=== PATIENT | female | born 1940 | race Caucasian/White ===

== ENCOUNTER 2016-11-07 14:07 | Emergency (ER) | payer OTHER, MEDICAID ==
[~2016-11-07] VITALS: Ht 152.4 cm; Wt 66.0 kg
[~2016-11-07 14:07] MED LIST: CALC500T12 PO; CHOL2000 PO; FERR325C PO; FURO40TA4 PO; NIFE30TA60 PO; OMEP20CA9 PO; PRAV10TA24 PO
[2016-11-07 14:10] VITALS: Ht 152.4 cm; Wt 66.0 kg
[2016-11-07] MEDS ORDERED: SODIUM CHLORIDE 0.9% 1L BAG IV* STA (14:48)
[2016-11-07 15:29] LABS: BASOPHILS % 0.2 % (0.0-2.0); EOSINOPHILS % 0.4 % (0.0-7.0); HEMATOCRIT 25.2 % (37.0-47.0); HEMOGLOBIN 8.6 g/dl (12.0-16.0); LYMPHOCYTES # 1.6 10^3/ul (0.8-2.9); MEAN CORPUSCULAR HEMOGLOBIN 33.2 pg (29.0-33.0); MEAN CORPUSCULAR HGB CONC 34.1 g/dl (32.0-37.0); MEAN CORPUSCULAR VOLUME 97.3 fl (82.0-101.0); MEAN PLATELET VOLUME 9.9 fl (7.4-10.4); MONOCYTES % 9.2 % (0.0-11.0); NEUTROPHIL # 8.2 10^3/ul (1.6-7.5); NEUTROPHILS % 74.7 % (39.0-77.0); PLATELET COUNT 183 10^3/UL (140-415); RED BLOOD COUNT 2.59 10^6/ul (4.20-5.40); RED CELL DISTRIBUTION WIDTH 12.5 % (11.5-14.5); WHITE BLOOD COUNT 10.9 10^3/ul (4.8-10.8)
[2016-11-07 15:37] LABS: ADD UMIC YES; UR ASCORBIC ACID 40 mg/dL (NEGATIVE); UR BILIRUBIN (Dip) NEGATIVE (NEGATIVE); UR BLOOD (Dip) NEGATIVE (NEGATIVE); UR CLARITY CLOUDY (CLEAR); UR COLOR YELLOW (YELLOW); UR GLUCOSE (Dip) NEGATIVE (NEGATIVE); UR KETONES (Dip) NEGATIVE (NEGATIVE); UR LEUKOCYTE ESTERASE (Dip) 2+ Leu/ul (NEGATIVE); UR NITRITE (Dip) NEGATIVE (NEGATIVE); UR RBC 5 /HPF (0-5); UR SPECIFIC GRAVITY (Dip) 1.012 (1.003-1.030); UR SQUAMOUS EPITHELIAL CELL FEW /HPF (FEW); UR TOTAL PROTEIN (Dip) NEGATIVE (NEGATIVE); UR UROBILINOGEN (Dip) NEGATIVE (NEGATIVE)
[2016-11-07 15:47] LABS: INR 1.01; PROTIME 13.3 Sec (12.2-14.2)
[2016-11-07 15:48] LABS: PARTIAL THROMBOPLASTIN TIME 35.6 Sec (25.0-35.0)
[2016-11-07 15:49] LABS: ALBUMIN/GLOBULIN RATIO 1.08; BILIRUBIN,INDIRECT 0.6 mg/dl (0-1.1); BILIRUBIN,TOTAL 0.6 mg/dl (0.2-1.3); CALCIUM 8.9 mg/dl (8.4-10.2); CREATININE 2.66 mg/dl (0.44-1.00); POTASSIUM 3.9 mmol/L (3.5-5.1); TOTAL PROTEIN 7.7 g/dl (6.1-8.1)
--- NOTE | 2016-11-07 16:00 | RADRPT ---
PROCEDURE: XR Chest. CLINICAL INDICATION: Sepsis. TECHNIQUE: Single frontal view. COMPARISON: 03/08/2015. FINDINGS: There are low lung volumes. The lungs are otherwise clear. The heart is mildly enlarged. There is calcification in the aorta consistent with atherosclerosis. There is no pleural effusion. There is no pneumothorax. IMPRESSION: 1. Low lung volumes. 2. Mild cardiomegaly. 3. Atherosclerosis. RPTAT: QQ .Young Camacho MD, MD Date Time Electronically viewed and signed by .Young Camacho MD, MD on 11/07/2016 16:00 .R/
[2016-11-07 16:01] LABS: TROPONIN-I 0.012 ng/ml (0.00-0.12)
[2016-11-07] MEDS ORDERED: CEFTRIAXONE 1 GM/50 ML (PMX) 50 ML IVPB ONE (16:30)
[2016-11-07] MEDS ORDERED: CIPR500T4 PO (17:07)
--- NOTE | 2016-11-07 17:07 | ERA ---
ER Documentation Chief Complaint Date/Time DATE: 11/07/16 TIME: 17:04 Chief Complaint Pt with fever, cough X 3 weeks and diarrhea X 3 days. HPI This is a 76-year-old female who presents to the emergency room for evaluation of generalized weakness, diarrhea for 3 days and a cough for the past week. She states that today she felt chills and thinks that she had a fever. She came to the emergency room for evaluation. She denies any abdominal pain, nausea or vomiting associated with this. ROS All systems reviewed and are negative except as per history of present illness. Medications Home Meds Reported Medications Furosemide* (Furosemide*) 40 Mg Tablet, 40 MG PO BID, TAB 03/02/15 Calcium Carbonate* (Oysco-500*) 1 Tab Tablet, 1 TAB PO BID, TAB 05/15/14 Ferrous Sulfate (Iron) 325 Mg Capsr, 325 MG PO BID 05/15/14 Cholecalciferol* (Vitamin D3*) 2,000 Unit Cap, 2000 UNIT PO DAILY, CAP 04/09/14 Nifedipine* (Nifedipine ER*) 30 Mg Tablet.sa, 30 MG PO DAILY, TAB.SA 03/20/14 Omeprazole* (Prilosec*) 20 Mg Capsule.dr, 20 MG PO DAILY, CAP 02/12/14 Pravastatin Sodium* (Pravachol*) 10 Mg Tablet, 10 MG PO HS, TAB 02/12/14 Allergies Allergies: Coded Allergies: Penicillins (Verified Allergy, Unknown, 03/11/15) PMhx/Soc History of Surgery: Yes Anesthesia Reaction: No Hx Neurological Disorder: No Hx Respiratory Disorders: No Hx Cardiac Disorders: Yes (HTN) Hx Psychiatric Problems: No Hx Miscellaneous Medical Probl: Yes (ckd,anemia) Hx Alcohol Use: No Hx Substance Use: No Hx Tobacco Use: No Smoking Status: Never smoker Physical Exam Vitals Vital Signs Date Time Temp Pulse Resp B/P Pulse Ox O2 Delivery O2 Flow Rate FiO2 11/07/16 15:20 70 18 125/47 97 Room Air 11/07/16 14:10 100.3 79 18 117/57 95 Physical Exam INITIAL VITAL SIGNS: Reviewed by me GENERAL: The patient is well developed and appropriate for usual state of health in no apparent distress HEENT: Dry mucous membranes, pupils equal, round, and reactive to light. EOMI. There is no scleral icterus. NECK: C-spine is soft and supple, there is no meningismus. There is no cervical lymphadenopathy. LUNGS: Clear to auscultation bilaterally. There are no rales, wheezes or rhonchi. HEART: Regular rate and rhythm, no murmurs, clicks, rubs or gallops. ABDOMEN: Slight suprapubic tenderness to palpation, otherwise soft, non-tender, non-distended. There are bowel sounds in all four quadrants. No rebound or guarding. EXTREMITIES: There is no peripheral cyanosis or edema. No focal swelling or erythema. NEUROLOGICAL: The patient moves all four extremities with 5/5 strength. Cranial nerves II - XII are intact. Normal gait. Alert and oriented SKIN: There is no apparent rash or petechiae. HEME/LYMPHATIC: There is no evidence of excessive bruising or lymphedema. PSYCHIATRIC: The patient does not appear anxious or depressed. Result Diagram: 11/07/16 1315 11/07/16 1315 Results 24 hrs Laboratory Tests Test 11/07/16 13:15 11/07/16 15:12 11/07/16 16:35 White Blood Count 10.910^3/ul Red Blood Count 2.5910^6/ul Hemoglobin 8.6g/dl Hematocrit 25.2% Mean Corpuscular Volume 97.3fl Mean Corpuscular Hemoglobin 33.2pg Mean Corpuscular Hemoglobin Concent 34.1g/dl Red Cell Distribution Width 12.5% Platelet Count 13870^3/UL Mean Platelet Volume 9.9fl Neutrophils % 74.7% Lymphocytes % 15.0% Monocytes % 9.2% Eosinophils % 0.4% Basophils % 0.2% Nucleated Red Blood Cells % 0.0/100WBC Neutrophils # 8.210^3/ul Lymphocytes # 1.610^3/ul Monocytes # 1.010^3/ul Eosinophils # 0.010^3/ul Basophils # 0.010^3/ul Nucleated Red Blood Cells # 0.010^3/ul Prothrombin Time 13.3Sec Prothrombin Time Ratio 1.0 INR International Normalized Ratio 1.01 Activated Partial Thromboplast Time 35.6Sec Sodium Level 133mmol/L Potassium Level 3.9mmol/L Chloride Level 100mmol/L Carbon Dioxide Level 24mmol/L Anion Gap 13 Blood Urea Nitrogen 59mg/dl Creatinine 2.66mg/dl Glucose Level 141mg/dl Lactic Acid Level 1.7mmol/L 0.9mmol/L Calcium Level 8.9mg/dl Total Bilirubin 0.6mg/dl Direct Bilirubin 0.00mg/dl Indirect Bilirubin 0.6mg/dl Aspartate Amino Transf (AST/SGOT) 23IU/L Alanine Aminotransferase (ALT/SGPT) 31IU/L Alkaline Phosphatase 143IU/L Troponin I 0.012ng/ml Total Protein 7.7g/dl Albumin 4.0g/dl Globulin 3.70g/dl Albumin/Globulin Ratio 1.08 Urine Color YELLOW Urine Clarity CLOUDY Urine pH 5.0 Urine Specific [place] 1.012 Urine Ketones NEGATIVEmg/dL Urine Nitrite NEGATIVEmg/dL Urine Bilirubin NEGATIVEmg/dL Urine Urobilinogen NEGATIVEmg/dL Urine Leukocyte Esterase 2+Joce/ul Urine Microscopic RBC 5/HPF Urine Microscopic WBC 3/HPF Urine Squamous Epithelial Cells FEW/HPF Urine Hemoglobin NEGATIVEmg/dL Urine Glucose NEGATIVEmg/dL Urine Total Protein NEGATIVEmg/dl Current Medications Medications (Trade) Dose Ordered Sig/Breanna Route PRN Reason Start Time Stop Time Status Last Admin Dose Admin Sodium Chloride 2000 ml 2,000 ml BOLUS OVER 2 HOURS STAT IV* 11/07/16 14:48 11/07/16 14:50 DC 11/07/16 15:39 Ceftriaxone Sodium (Rocephin) 50 ml @ 100 mls/hr ONCE ONCE IVPB 11/07/16 16:30 11/07/16 16:59 DC 11/07/16 16:11 Procedures/MDM EKG: Rate/Rhythm: [Normal Sinus Rhythm] QRS, ST, T-waves: [No changes consistent w/ acute ischemia] Impression: [No evidence of ischemia or arrhythmia] Chest X-ray 1V Interpreted by me: Soft Tissue: No acute abnormalities Bones: No acute abnormalities Mediastinum/Cardiac Silhouette/Lungs: [No acute abnormalities] This 76-year-old female presents to the ER for evaluation of generalized weakness and low-grade fever with diarrhea. This patient had a low-grade fever on her vital signs at triage. She did have mild suprapubic tenderness to palpation. A septic workup was started on this patient which does reveal a urinary tract infection. She has no leukocytosis, her mean arterial pressures greater than 65. She was given 2 L of fluid and 1 g Rocephin after blood and urine cultures were obtained. When I reevaluated her she said she was feeling much better. Her EKG is nonischemic and chest x-ray is clear. This patient will be discharged home with a prescription for ciprofloxacin for acute cystitis at this time. I advised her and her they can return to the emergency room at any point for reevaluation if they were to have any concerns or questions at home. Both verbalized understanding and are okay with the plan of care Departure Diagnosis: Primary Impression: Acute cystitis Additional Impressions: Renal insufficiency Normocytic anemia Condition: Stable HANY HUMPHREYS DO Nov 07, 2016 17:07
[2016-11-07 17:26] VITALS: BP 125/53; PULSE 73; RESP 18
== END 2016-11-07 17:34 | disposition home or self-care (01) ==
LOC: E/R 14:07
DX: N30.00 Acute cystitis without hematuria (principal); R40.2252 Coma scale, best verbal response, oriented, at arrival to emergency department; D64.9 Anemia, unspecified; I12.9 Hypertensive chronic kidney disease with stage 1 through stage 4 chronic kidney disease, or unspecified chronic kidney disease; N18.9 Chronic kidney disease, unspecified; R40.2142 Coma scale, eyes open, spontaneous, at arrival to emergency department; R40.2362 Coma scale, best motor response, obeys commands, at arrival to emergency department
CPT/HCPCS: 36415; 71010; 80053; 81001; 83605; 84484; 85025; 85610; 85730; 87040; 87086; 93005; 96374; 99285; J0696; J7030

== ENCOUNTER 2017-01-15 22:51 | Emergency (ER) | payer OTHER, MEDICAID ==
[~2017-01-15] VITALS: Ht 157.5 cm; Wt 65.2 kg
[~2017-01-15 22:51] MED LIST changes: +CIPR500T4 PO
[2017-01-15 22:55] VITALS: Ht 157.5 cm; Wt 65.2 kg
[2017-01-16 00:34] LABS: URINE BLOOD (Dip) POC 1+ (NEGATIVE)
[2017-01-16] MEDS ORDERED: CEPHALEXIN 500 MG CAP PO ONE (01:30)
[2017-01-16] MEDS ORDERED: PHEN-537 PO (02:22)
[2017-01-16] MEDS ORDERED: CEPH-443 PO (02:22)
[2017-01-16 02:55] VITALS: BP 150/73; PULSE 69; RESP 20; TEMP 97.7
[2017-01-16 03:08] LABS: UR BACTERIA FEW /HPF (NONE SEEN); UR RBC 1 /HPF (0-5)
[2017-01-16 04:02] LABS: ADD UMIC YES; UR CLARITY CLEAR (CLEAR); UR COLOR YELLOW (YELLOW)
[2017-01-16 04:03] LABS: UR BILIRUBIN (Dip) NEGATIVE (NEGATIVE); UR BLOOD (Dip) TRACE mg/dL (NEGATIVE); UR GLUCOSE (Dip) NEGATIVE (NEGATIVE); UR KETONES (Dip) NEGATIVE (NEGATIVE); UR PH (Dip) 5.5 (5.0-9.0); UR SPECIFIC GRAVITY (Dip) <= 1.005 (1.003-1.030); UR TOTAL PROTEIN (Dip) TRACE mg/dl (NEGATIVE)
[2017-01-16 04:04] LABS: UR LEUKOCYTE ESTERASE (Dip) 3+ Leu/ul (NEGATIVE); UR NITRITE (Dip) POSITIVE (NEGATIVE); UR UROBILINOGEN (Dip) 0.2 E.U./dL mg/dL (NEGATIVE); URINE RBCS 0-2 /HPF (0)
--- NOTE | 2017-01-17 05:20 | ERD ---
ER Documentation Chief Complaint Chief Complaint painful urination x 2 days HPI This is a 76-year-old female presenting to the emergency department for dysuria , frequent and urgent urination 2 days. Patient states she is having burning with urination. No pelvic or abdominal pain. No gross hematuria. No vaginal bleeding. No excessive vaginal discharge. No fevers or chills. No flank pain. No vomiting or diarrhea. No rash or lesions to genital area. ROS All systems reviewed and are negative except as per history of present illness. Medications Home Meds Active Scripts Phenazopyridine Hcl* (Pyridium*) 100 Mg Tab, 100 MG PO TID for 2 Days, TAB Prov:MARIA ESTHER BRANTLEY NP 01/16/17 Cephalexin* (Keflex*) 500 Mg Capsule, 500 MG PO BID for 7 Days, CAP Prov:MARIA ESTHER BRANTLEY NP 01/16/17 Ciprofloxacin Hcl* (Ciprofloxacin Hcl*) 500 Mg Tablet, 500 MG PO BID for 7 Days , TAB Prov:HANY HUMPHREYS DO 11/07/16 Reported Medications Furosemide* (Furosemide*) 40 Mg Tablet, 40 MG PO BID, TAB 03/02/15 Calcium Carbonate* (Oysco-500*) 1 Tab Tablet, 1 TAB PO BID, TAB 05/15/14 Ferrous Sulfate (Iron) 325 Mg Capsr, 325 MG PO BID 05/15/14 Cholecalciferol* (Vitamin D3*) 2,000 Unit Cap, 2000 UNIT PO DAILY, CAP 04/09/14 Nifedipine* (Nifedipine ER*) 30 Mg Tablet.sa, 30 MG PO DAILY, TAB.SA 03/20/14 Omeprazole* (Prilosec*) 20 Mg Capsule.dr, 20 MG PO DAILY, CAP 02/12/14 Pravastatin Sodium* (Pravachol*) 10 Mg Tablet, 10 MG PO HS, TAB 02/12/14 Allergies Allergies: Coded Allergies: Penicillins (Verified Allergy, Unknown, 03/11/15) PMhx/Soc History of Surgery: Yes Anesthesia Reaction: No Hx Neurological Disorder: No Hx Respiratory Disorders: No Hx Cardiac Disorders: Yes (HTN) Hx Psychiatric Problems: No Hx Miscellaneous Medical Probl: Yes (ckd,anemia) Hx Alcohol Use: No Hx Substance Use: No Hx Tobacco Use: No Smoking Status: Never smoker Physical Exam Vitals Vital Signs Date Time Temp Pulse Resp B/P Pulse Ox O2 Delivery O2 Flow Rate FiO2 01/16/17 02:55 97.7 69 20 150/73 01/15/17 22:55 97.8 72 20 169/75 100 Physical Exam Const: No acute distress, alert Head: Atraumatic Eyes: Normal Conjunctiva ENT: Normal External Ears, Nose and Mouth. Neck: Full range of motion..~ No meningismus. Resp: Clear to auscultation bilaterally. No wheezing, rhonchi or crackles. No stridor or labored breathing. Cardio: Regular rate and rhythm, no murmurs Abd: Soft, non tender, non distended. Normal bowel sounds. No pelvic tenderness. Skin: No petechiae or rashes Back: No midline or flank tenderness. No CVA tenderness. Ext: No cyanosis, or edema Neur: Awake and alert Psych: Normal Mood and Affect Results 24 hrs Laboratory Tests Test 01/16/17 00:25 01/16/17 00:34 Urine Color YELLOW Urine Clarity CLEAR Urine pH 5.5 Urine Specific [place] <= 1.005 Urine Ketones NEGATIVEmg/dL Urine Nitrite POSITIVEmg/dL Urine Bilirubin NEGATIVEmg/dL Urine Urobilinogen 0.2 E.U./dLmg/dL Urine Leukocyte Esterase 3+Joce/ul Urine Microscopic RBC 1/HPF Urine Microscopic WBC > 182/HPF Urine Bacteria FEW/HPF Urine Hemoglobin TRACEmg/dL Urine Glucose NEGATIVEmg/dL Urine Total Protein TRACEmg/dl Bedside Urine pH (LAB) 5.5 Bedside Urine Protein (LAB) 1+ Bedside Urine Glucose (UA) Negative Bedside Urine Ketones (LAB) Negative Bedside Urine Blood 1+ Bedside Urine Nitrite (LAB) Positive Bedside Urine Leukocyte Esterase (L 3+ Current Medications Medications (Trade) Dose Ordered Sig/Breanna Route PRN Reason Start Time Stop Time Status Last Admin Dose Admin Cephalexin (Keflex) 500 mg ONCE ONCE PO 01/16/17 01:30 01/16/17 01:31 DC 01/16/17 01:20 Procedures/MDM MDM: This is a 76-year-old female presenting to the emergency department for dysuria, frequent and urgent urination 2 days. Patient is afebrile upon arrival to ED. Patient's blood pressure is 169/75 upon arrival. Upon recheck, patient's blood pressure has improved. Patient is non-tachycardic. No abdominal pain or vomiting. Patient denies any gross hematuria. No vaginal bleeding or vaginal discharge. UA shows 3+ leukocyte esterase, >182 WBC and positive nitrate. Differential diagnosis includes but not limited to Urinary tract infection, vaginitis, candidiasis, urethritis, pelvic inflammatory disease, nephrolithiasis , painful bladder syndrome, gonorrhea, chlamydia, herpes simplex virus, genital warts or trichomoniasis. Low suspicion for pyelonephritis due to patient being afebrile without chills. No flank pain, no CVA tenderness. Patient denies nausea or vomiting. Patient is appropriate for outpatient management and will be given prescription for Keflex and Pyridium. Instructed patient to increase fluid intake and rest as needed. Instructed patient to follow-up with primary care provider in the next 2-3 days for reassessment. Return to ED for any high fever, chest pain, difficulty breathing, shortness breath, wheezing, vomiting, diarrhea, abdominal pain or any new or worsening symptoms. Patient verbalizes understanding. All questions answered at discharge. Bulgarian translation used during this encounter. Disclaimer: Inadvertent spelling and grammatical errors are likely due to EHR/ dictation software use and do not reflect on the overall quality of patient care. Also, please note that the electronic time recorded on this note does not necessarily reflect the actual time of the patient encounter. Departure Diagnosis: Primary Impression: UTI (urinary tract infection) Condition: Stable Patient Instructions: Understanding Urinary Tract Infections (UTIs) Referrals: AYO HERBERT MD (PCP) TEACHER HEARING IMPAIRED [place] [id number] [phone] OFFICE FAX AMEE FIERRO [address] [place], [place] [phone] [address] KAMINSKI HENDRIX [address] [place], [place] [phone] MARILUZ GONZALEZ [address] [facility], [address] [address] [address] [address] [place], [place] [phone] [facility] [address] [place] [phone] [facility] [id number] - TRESA ROBERT [address], [facility] [address] [address] KEARNEY, DANY [address] [facility]. [address], [facility] [address] [address] ROSADO, FARID [address] [place], [place] [phone] [facility] () Usted se ge hecho un examen mdico de control que le indica que no est en leann condicin que requiera tratamiento urgente en el Departamento de Emergencia. Un estudio ms profundo y el tratamiento de hernandez condicin pueden esperar sin ningn riesgo hasta que usted sea atendida/o en el consultorio de hernandez mdico o leann cl flaquita. Es responsabilidad suya arreglar leann vineet para el seguimiento del jovi. MANEJO DE CONDICIONES NO URGENTES EN EL FUTURO 1) Si usted tiene un mdico de atencin primaria: Usted debera llamar a hernandez mdico de atencin primaria antes de venir al departamento de emergencia. Despus de las horas de consultorio, hernandez doctor o hernandez asociado/a est disponible por telfono. El mdico o enfermero de ran en el servicio telefnico puede asesorarle por marianela medio para atender el problema, o jovi contrario se puede programar leann vineet. 2) Si usted no tiene un mdico de atencin primaria: Llame al mdico o clnica de referencia que aparece abajo philippe las horas de consultorio para hacer leann vineet para que le vean. CLINICAS: [facility] [phone] [facility] [phone] 75[address] [facility]. [facility] [phone] [address] [facility]. [facility] [phone] [address] [facility]. [facility] [phone] [address] [facility]. [phone] [address] [facility]. [facility] () Usted se ge hecho un examen mdico de control que le indica que no est en leann condicin que requiera tratamiento urgente en el Departamento de Emergencia. Un estudio ms profundo y el tratamiento de hernandez condicin pueden esperar sin ningn riesgo hasta que usted sea atendida/o en el consultorio de hernandez mdico o leann cl flaquita. Es responsabilidad suya arreglar leann vineet para el seguimiento del jovi. MANEJO DE CONDICIONES NO URGENTES EN EL FUTURO 1) Si usted tiene un mdico de atencin primaria: Usted debera llamar a hernandez mdico de atencin primaria antes de venir al departamento de emergencia. Despus de las horas de consultorio, hernandez doctor o hernandez asociado/a est disponible por telfono. El mdico o enfermero de ran en el servicio telefnico puede asesorarle por marianela medio para atender el problema, o jovi contrario se puede programar leann vineet. 2) Si usted no tiene un mdico de atencin primaria: Llame al mdico o condado institucions de referencia que aparece abajo philippe las horas de consultorio para hacer leann vineet para que le vean. SI USTED NO PUEDE PAGAR PARA CHARLEEN UN MEDICO puede ir a: [facility] [address] [place] [address] [facility] [address] [place] [address] [facility] [address] [place] [address] [facility] [address] [place], [place] [phone] Additional Instructions: Llame al doctor MAANA y ben leann VINEET PARA DENTRO DE 2-3 BAEZ.Dgale a la secretaria que nosotros le instruimos hacer esta vineet.Avise o llame si hernandez condicin se empeora antes de la vineet. Regresa aqui si peor o no mejor. Volver a Ed para cualquier fiebre jason, dolor torcico, dificultad respiratoria , respiracin entrecortada, sibilancias, vmitos, diarrea, dolor abdominal o cualquier sntoma nuevo o empeoramiento MARIA ESTHER BRANTLEY NP Jan 17, 2017 05:20
== END 2017-01-16 02:42 | disposition home or self-care (01) ==
LOC: FTE 22:51
DX: N39.0 Urinary tract infection, site not specified (principal); I12.9 Hypertensive chronic kidney disease with stage 1 through stage 4 chronic kidney disease, or unspecified chronic kidney disease; N18.9 Chronic kidney disease, unspecified
CPT/HCPCS: 81001; 81003; 99283

== ENCOUNTER 2017-08-13 18:59 | Inpatient (IN) | END 2017-08-14 13:51 | disposition home or self-care (01) | DRG 641 ==